=== PATIENT | male | born 1955 | race Asian ===

== ENCOUNTER 2018-02-18 01:03 | Emergency (ER) | payer SELFPAY ==
[2018-02-18] MEDS ORDERED: Lidocaine 1% INJ* 10 MG/ML 30 ML SDV INJ ONE (02:10)
[2018-02-18] MEDS ORDERED: Lidocaine 2% EPI 1:200000 MPF*10-20 ML VIAL ONE (02:14)
--- NOTE | 2018-02-18 02:49 | ED ---
Laceration/Wound HPI - HPI Summary HPI Summary: 62-year-old male presents with left eyebrow laceration today. He states that he rolled out of bed and hit the left side of the eye. He denies any change in vision. He denies any nausea vomiting. Denies any neck pain. He denies any dizziness. He is not on blood thinners. No loss consciousness. He denies any headache. He has some bruising noted to his left eye. Extraocular movements intact. Immunizations up-to-date. Daughter is translating. No medical conditions. - History of Current Complaint Stated Complaint: HEAD LAC Time Seen by Provider: 02/18/18 01:51 Pain Intensity: 3 - Allergy/Home Medications Allergies/Adverse Reactions: Allergies Allergy/AdvReac Type Severity Reaction Status Date / Time No Known Allergies Allergy Verified 02/18/18 01:21 PMH/Surg Hx/FS Hx/Imm Hx Endocrine/Hematology History: Denies: Hx Anticoagulant Therapy Cardiovascular History: Denies: Hx Myocardial Infarction Infectious Disease History: No Infectious Disease History: Reports: Traveled Outside the in Last 30 Days - [facility] - Family History Known Family History: Negative: Blood Disorder - Social History Alcohol Use: Rare Substance Use Type: Reports: None Smoking Status (MU): Never Smoked Tobacco Review of Systems Negative: Fever Negative: Chest Pain Negative: Shortness Of Breath Positive: Other - laceration above left eye All Other Systems Reviewed And Are Negative: Yes Physical Exam Triage Information Reviewed: Yes Vital Signs On Initial Exam: Initial Vitals Temp Pulse Resp BP Pulse Ox 97.1 F 85 16 140/83 95 02/18/18 01:18 02/18/18 01:18 02/18/18 01:18 02/18/18 01:18 02/18/18 01:18 Vital Signs Reviewed: Yes Appearance: Positive: Well-Appearing Skin: Positive: Warm, Dry, Other - 4 centimeter flap-like laceration above left eye Head/Face: Positive: Normal Head/Face Inspection, Other - no step off, racoon eyes, lanza sign Eyes: Positive: Normal, EOMI, [place], Conjunctiva Clear ENT: Positive: Normal ENT inspection, Pharynx normal, TMs normal Respiratory/Lung Sounds: Positive: Clear to Auscultation, Breath Sounds Present Cardiovascular: Positive: Normal, RRR Musculoskeletal: Positive: Normal Neurological: Positive: Sensory/Motor Intact, CN Intact II-III Psychiatric: Positive: Normal - [place] Coma Scale Best Eye Response: 4 - Spontaneous Best Motor Response: 6 - Obeys Commands Best Verbal Response: 5 - Oriented Coma Scale Total: 15 Procedures - Laceration/Wound Repair 1 Location: face Description: Irregular Anesthesia: Local, 1.0%, Epi Length, Depth and Shape: 4cm by 1/2cm Irrigated w/ Saline (ccs): 200 Laceration/Wound Explored: clean, no foreign body removed Closure: Single Layer Suture Type: Prolene - 6-0 Number of Sutures: 7 Layer Closure?: No Diagnostics - Vital Signs Vital Signs Temp Pulse Resp BP Pulse Ox 02/18/18 01:18 97.1 F 85 16 140/83 95 - Laboratory Lab Statement: Any lab studies that have been ordered have been reviewed, and results considered in the medical decision making process. Laceration Repair Course/Dx - Course Course Of Treatment: 62-year-old male presents with left eyebrow laceration today. He states that he rolled out of bed and hit the left side of the eye on end table. He denies any change in vision. He denies any nausea vomiting. Denies any neck pain. He denies any dizziness. He is not on blood thinners. No loss consciousness. He denies any headache. He has some bruising noted to his left eye. Extraocular movements intact. Immunizations up-to-date. Daughter is translating. No medical conditions. On exam has for severe flap- like laceration above left eye. Extraocular movements intact. Normal neuro exam. Explained likely will scar. Placed 7 sutures and will reapproximate as well as possible. Told to return develop any vomiting or worsening symptoms. Patient understands and agrees with plan. - Differential Dx Differental Diagnoses: Abrasion, Avulsion, Laceration - Clinical Impression Provider Diagnoses: Facial laceration Discharge - Sign-Out/Discharge Documenting (check all that apply): Discharge/Admit/Transfer - Discharge Plan Condition: Good Disposition: HOME Patient Education Materials: Care For Your Stitches (ED) Referrals: No Primary Care Phys,NOPCP [Primary Care Provider] - Additional Instructions: Keep area clean and dry for 24 hours Take Tylenol pain every [address] ice on area Return to ED or primary for suture removal in 5 days Return to ED if develop signs of infection such as fever, spreading redness, or pus formation - Billing Disposition and Condition Condition: GOOD Disposition: HOME
[2018-02-18 03:15] VITALS: BP 139/76
== END 2018-02-18 03:14 | disposition home or self-care (01) ==
LOC: ED 01:03
DX: S01.112A Laceration without foreign body of left eyelid and periocular area, initial encounter (principal); W22.8XXA Striking against or struck by other objects, initial encounter; Y92.9 Unspecified place or not applicable
CPT/HCPCS: 12013; 99282